=== PATIENT | female | born 2000 | race African-American/Black ===

== ENCOUNTER 2021-01-31 18:54 | Emergency (ER) | payer MEDICAID ==
[2021-01-31 19:59] VITALS: BP 97/56
[2021-01-31] MEDS ORDERED: CEFTRIAXONE SODIUM 500 MG/VIAL IM NR (20:45)
[2021-01-31] MEDS ORDERED: DOXYCYCLINE HYCLATE 100MG CAPSULE PO NR (20:45)
[2021-01-31 20:48] LABS: CLARITY URINE CLEAR (CLEAR); COLOR URINE YELLOW (YELLOW); KETONES URINE TRACE (NEGATIVE); LEUKOCYTE ESTERASE URINE TRACE (NEGATIVE); NITRITE URINE NEGATIVE (NEGATIVE); OCCULT BLOOD URINE NEGATIVE (NEGATIVE); PH URINE 6.5 (4.5-8.0); PROTEIN URINE 1+ (NEGATIVE)
[2021-01-31] MEDS ORDERED: DOXY100C42 MT (20:55)
[2021-01-31] MEDS ORDERED: LEVO1.5T7 MT (20:55)
== END 2021-01-31 21:04 | disposition home or self-care (01) ==
LOC: EDSEX 18:54 → ER 18:54
DX: N39.0 Urinary tract infection, site not specified (principal); F12.10 Cannabis abuse, uncomplicated
CPT/HCPCS: 81003; 81025; 87591; 96372; 99284; J0696

== ENCOUNTER 2021-04-01 18:09 | Emergency (ER) | payer MEDICAID ==
[~2021-04-01] VITALS: Ht 165.1 cm; Wt 57.0 kg
[~2021-04-01 18:09] MED LIST: DOXY100C42 MT; LEVO1.5T7 MT; NITR-87 MT
[2021-04-01] MEDS ORDERED: KETOROLAC 60MG/2ML VIAL IM STA (22:25)
[2021-04-01 22:44] VITALS: BP 111/77
[2021-04-01 22:49] LABS: BASOPHILS % 0.5 % (0.0-2.0); EOSINOPHILS % 3.3 % (0.0-5.0); HEMATOCRIT. 37.3 % (36.0-48.0); HEMOGLOBIN. 12.8 g/dL (12.0-16.0); MEAN CORPUSCULAR HEMOGLOBIN 33.2 pg (28.0-32.0); MEAN CORPUSCULAR VOLUME 96.7 fL (81.0-99.0); MEAN PLATELET VOLUME 6.4 fl (7.4-10.4); MONOCYTES % 6.3 % (2.0-8.0); NEUTROPHILS % 44.9 % (40.0-76.0); PLATELET 336 x1000/uL (130-400); RED BLOOD CELL COUNT 3.86 mill/uL (4.2-5.4); RED CELL DISTRIBUTION WIDTH 13.2 % (11.6-14.6)
[2021-04-01 22:55] LABS: CHLORIDE 107 mEq/L (98-107)
[2021-04-01 22:58] LABS: HCG SCREEN NEGATIVE
== END 2021-04-01 23:39 | disposition left against medical advice (07) ==
LOC: ER 18:09
DX: R07.89 Other chest pain (principal); F12.10 Cannabis abuse, uncomplicated
CPT/HCPCS: 36415; 80053; 84484; 84703; 85025; 85379; 93005; 99284

== ENCOUNTER 2021-09-14 11:03 | Emergency (ER) | payer MEDICAID ==
[~2021-09-14] VITALS: Ht 165.1 cm; Wt 60.0 kg
[~2021-09-14 11:03] MED LIST changes: +DOXY-326 MT; -DOXY100C42 MT; +LEVO1.5T37 MT; -LEVO1.5T7 MT
[2021-09-14] MEDS ORDERED: DOXY-326 MT (11:14)
[2021-09-14] MEDS ORDERED: DOXYCYCLINE HYCLATE 100MG CAPSULE PO ONE (11:15)
[2021-09-14] MEDS ORDERED: CEFTRIAXONE SODIUM 500 MG/VIAL IM ONE (11:15)
[2021-09-14] MEDS ORDERED: LIDOCAINE HCL/PF 1% 10 MG/ML 5ML VIAL INFIL ONE (11:15)
[2021-09-14 11:39] LABS: CLARITY URINE CLOUDY (CLEAR); COLOR URINE YELLOW (YELLOW); KETONES URINE TRACE (NEGATIVE); LEUKOCYTE ESTERASE URINE 1+ (NEGATIVE); NITRITE URINE NEGATIVE (NEGATIVE); OCCULT BLOOD URINE NEGATIVE (NEGATIVE); PROTEIN URINE 1+ (NEGATIVE); SPECIFIC GRAVITY URINE 1.033 (1.005-1.030)
[2021-09-14 11:48] VITALS: BP 125/64
[2021-09-14] MEDS ORDERED: LIDOCAINE HCL 1% 20ML VIAL (Pyxis) INJ INL SCH (12:15)
[2021-09-17 09:10] LABS: NEISSERIA GONORRHOEAE NAA Positive (Negative)
== END 2021-09-14 11:49 | disposition home or self-care (01) ==
LOC: ER 11:03
DX: A54.02 Gonococcal vulvovaginitis, unspecified (principal); F12.10 Cannabis abuse, uncomplicated
CPT/HCPCS: 81003; 81025; 87491; 87591; 96372; 99283; J0696; J3490

== ENCOUNTER 2021-12-08 05:23 | Emergency (ER) | payer MEDICAID ==
[~2021-12-08] VITALS: Ht 165.1 cm; Wt 57.0 kg
[2021-12-08] MEDS ORDERED: METR500T MT (07:30)
[2021-12-08] MEDS ORDERED: DOXYCYCLINE HYCLATE 100MG CAPSULE PO ONE (07:30)
[2021-12-08] MEDS ORDERED: DOXY100C5 MT (07:30)
[2021-12-08] MEDS ORDERED: CEFTRIAXONE SODIUM 1 G/VIAL IM ONE (07:30)
[2021-12-08 07:50] VITALS: BP 127/75
[2021-12-08 08:06] LABS: CLARITY URINE CLOUDY (CLEAR); COLOR URINE YELLOW (YELLOW); KETONES URINE NEGATIVE (NEGATIVE); LEUKOCYTE ESTERASE URINE NEGATIVE (NEGATIVE); NITRITE URINE NEGATIVE (NEGATIVE); OCCULT BLOOD URINE NEGATIVE (NEGATIVE); PH URINE 6.5 (4.5-8.0); PROTEIN URINE NEGATIVE (NEGATIVE); SPECIFIC GRAVITY URINE 1.028 (1.005-1.030)
[2021-12-10 19:06] LABS: NEISSERIA GONORRHOEAE NAA Negative (Negative)
== END 2021-12-08 07:50 | disposition home or self-care (01) ==
LOC: ER 06:11
DX: N89.8 Other specified noninflammatory disorders of vagina (principal); A64 Unspecified sexually transmitted disease; F12.10 Cannabis abuse, uncomplicated; Z79.899 Other long term (current) drug therapy
CPT/HCPCS: 81003; 81025; 87210; 87491; 87591; 96372; 99283; J0696

== ENCOUNTER 2021-12-30 03:13 | Emergency (ER) | payer MEDICAID, OTHER ==
[~2021-12-30] VITALS: Ht 165.1 cm; Wt 61.3 kg
[~2021-12-30 03:13] MED LIST changes: +DOXY100C5 MT; +METR500T MT
[2021-12-30 03:26] VITALS: BP 114/84
[2021-12-30 05:13] LABS: CLARITY URINE CLEAR (CLEAR); COLOR URINE YELLOW (YELLOW); KETONES URINE NEGATIVE (NEGATIVE); LEUKOCYTE ESTERASE URINE NEGATIVE (NEGATIVE); NITRITE URINE NEGATIVE (NEGATIVE); OCCULT BLOOD URINE NEGATIVE (NEGATIVE); PH URINE 7.5 (4.5-8.0); PROTEIN URINE TRACE (NEGATIVE); SPECIFIC GRAVITY URINE 1.015 (1.005-1.030); UROBILINOGEN URINE 0.2 E.U./dL (0.2-1.0)
[2021-12-30] MEDS ORDERED: ACETAMINOPHEN 325MG TABLET PO ONE (05:15)
[2021-12-30 05:43] LABS: BASOPHILS % 0.3 % (0.0-2.0); EOSINOPHILS % 0.7 % (0.0-5.0); HEMATOCRIT. 36.9 % (36.0-48.0); HEMOGLOBIN. 12.7 g/dL (12.0-16.0); MEAN CORPUSCULAR HEMOGLOBIN 33.2 pg (28.0-32.0); MEAN CORPUSCULAR VOLUME 96.5 fL (81.0-99.0); MEAN PLATELET VOLUME 6.5 fl (7.4-10.4); MONOCYTES % 7.6 % (2.0-8.0); NEUTROPHILS % 59.4 % (40.0-76.0); PLATELET 358 x1000/uL (130-400); RED BLOOD CELL COUNT 3.83 mill/uL (4.2-5.4); RED CELL DISTRIBUTION WIDTH 13.6 % (11.6-14.6)
[2021-12-30 05:58] LABS: CHLORIDE 110 mEq/L (98-107)
[2021-12-30 05:59] LABS: HCG SCREEN NEGATIVE
[2021-12-30] MEDS ORDERED: TOPUD PO (07:31)
== END 2021-12-30 08:04 | disposition home or self-care (01) ==
LOC: ER 03:13
DX: R10.84 Generalized abdominal pain (principal); F31.9 Bipolar disorder, unspecified; F12.10 Cannabis abuse, uncomplicated
CPT/HCPCS: 36415; 74018; 80053; 81003; 81025; 84703; 85025; 86850; 86900; 99284

== ENCOUNTER 2022-07-18 10:28 | Emergency (ER) | payer MEDICAID, OTHER ==
[~2022-07-18] VITALS: Ht 165.1 cm; Wt 72.0 kg
[~2022-07-18 10:28] MED LIST changes: +TOPUD PO
[2022-07-18] MEDS ORDERED: BALANCED SALT IRRIG SOLN 15ML IR ONE (11:30)
[2022-07-18] MEDS ORDERED: FLUORESCEIN SODIUM 1MG/STRIP LEFTEYE ONE (11:30)
[2022-07-18] MEDS ORDERED: TETRACAINE 0.5% OPHTH DROPS 4ML LEFTEYE ONE (11:30)
[2022-07-18] MEDS ORDERED: IBUPROFEN 600MG TABLET PO STA (11:30)
[2022-07-18 12:19] VITALS: BP 106/65
[2022-07-18] MEDS ORDERED: ERYT1OIN6 LEFTEYE (12:43)
[2022-07-18] MEDS ORDERED: NAPR-681 PO (12:43)
[2022-07-18] MEDS ORDERED: DOXY100T28 PO (12:43)
== END 2022-07-18 13:32 | disposition home or self-care (01) ==
LOC: ER 10:28
DX: H10.212 Acute toxic conjunctivitis, left eye (principal); H01.006 Unspecified blepharitis left eye, unspecified eyelid; F12.10 Cannabis abuse, uncomplicated
CPT/HCPCS: 81025; 99284